=== PATIENT | male | born 1980 | race Caucasian/White ===

== ENCOUNTER 2022-03-10 14:07 | Outpatient (CLI) | payer OTHER ==
--- NOTE | 2022-03-10 16:19 | MRI Report ---
PROCEDURE: Lumbar Spine W/O INDICATIONS: POLYNEUROPATHY TECHNIQUE: Noncontrast sagittal T1 spin echo and T2 fast echo, sagittal STIR, axial T1 and T2 fast spin echo thr ough the lumbar spine. In cases with scoliosis, additional coronal T2 fast spin echo may be performe d. COMPARISON: None. FINDINGS: Image quality: Excellent. Alignment and Curvature: There is normal bony alignment. Bone Marrow: Marrow is of normal overall signal. No acute vertebral body compression fractures. Spinal Cord: Conus medullaris terminates at the normal level. Visualized cord demonstrates normal s ignal and size. Paraspinous Soft Tissues: No paravertebral masses. At both L4-L5 and L5-S1, disc desiccation and disc height loss with diffuse disc bulges which flatten the ventral thecal sac and mildly displaces the descending and S1 nerve roots at these levels, respe ctively. Foraminal components of the disc bulges at these levels contribute to mild bilateral neural foraminal narrowing without mass effect upon the exiting nerve roots. From T12-L1 through L3-L4 there is no significant degenerative change or evidence of focal nerve root impingement. IMPRESSION: Mild degenerative changes at L4-L5 and L5-S1, with disc desiccation and disc bulges at both levels pr oducing mild displacement of the descending subarticular zone nerve roots at these levels. Correlate for any corresponding L5 or S1 radicular symptoms. Reviewed by: Ramon Camacho MD on 03/10/2022 4:18 PM PDT Approved by: Ramon Camacho MD on 03/10/2022 4:18 PM PDT Station ID: [id number]
== END 2022-03-10 14:08 | disposition home or self-care (01) ==
LOC: DI 14:07
PROVIDERS: ATTEND Student in an Organized Health Care Education/Training Program
DX: G62.9 Polyneuropathy, unspecified (principal); M51.36 Other intervertebral disc degeneration, lumbar region; M48.061 Spinal stenosis, lumbar region without neurogenic claudication; M51.37 Other intervertebral disc degeneration, lumbosacral region; M48.07 Spinal stenosis, lumbosacral region

== ENCOUNTER 2023-08-01 08:45 | Outpatient (CLI) | payer OTHER ==
--- NOTE | 2023-08-01 09:46 | Sleep Patient Instructions ---
Sleep Center Visit Summary - Patient Visit Information Reason for Visit: Initial consult for evaluation of sleep disordered breathing and other sleep issues. - Patient Instructions Instructions Attached: Sleep Study, Sleep Study Home Monitor Additional Instructions: You will be completing a sleep study, either an in-lab polysomnography (PSG) or home sleep study (HST). You will follow-up in the sleep care office after the sleep study is completed to hear the results and talk about therapy, if needed. You will be called by our office staff to schedule this appointment, but you may contact us with any questions. - Clinic Information Contact: [facility] [address] [place] [id number] [email or web address] T: [phone]
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
[2023-08-01 09:52] VITALS: BP 128/80; O2SAT 97
== END 2023-08-01 08:46 | disposition home or self-care (01) ==
LOC: SC 08:45
PROVIDERS: ATTEND Nurse Practitioner Family
DX: R06.83 Snoring (principal); G47.8 Other sleep disorders; R06.81 Apnea, not elsewhere classified; G47.10 Hypersomnia, unspecified; F32.A Depression, unspecified; E66.9 Obesity, unspecified; Z68.31 Body mass index [BMI] 31.0-31.9, adult; F17.210 Nicotine dependence, cigarettes, uncomplicated
CPT/HCPCS: 99203; 99212

== ENCOUNTER 2023-08-27 20:32 | Outpatient (CLI) | payer OTHER | END 2023-08-27 20:33 | disposition home or self-care (01) | LOC: SC 20:32 | PROVIDERS: ATTEND Nurse Practitioner Family | DX: G47.8 Other sleep disorders (principal) | CPT/HCPCS: 95810 ==

== ENCOUNTER 2023-09-06 10:55 | Outpatient (CLI) | payer OTHER ==
--- NOTE | 2023-09-06 12:01 | Sleep Patient Instructions ---
Sleep Center Visit Summary - Patient Visit Information Reason for Visit: Sleep study follow-up - Patient Instructions Instructions Attached: CPAP Additional Instructions: You are being started on CPAP therapy with pressure setting at 4-15 cmH2O. You will need to call the sleep care office to set up your follow up once you have your APAP machine and we will schedule a visit to check compliance and response to therapy at that time. You may call the office with any concerns about pressure feeling too low or too much for adjustment, if needed. You should contact DME supplier for any questions or concerns about mask or equipment. Please call office to schedule a follow up appointment in the sleep care office one month after obtaining new device. - Clinic Information Contact: [facility] [address] [place] [address] [email or web address] T: [phone]
--- NOTE | 2023-09-06 12:04 | SLEEP CARE CONSULTATION ---
Information from patient questionnaire entered by Thea White. I have reviewed and concur with the information entered by Thea White. This document represents the service I personally performed and the decisions made by , Love Hyde ARNP. History of Present Illness Service Date and Time: 09/06/2023 1055 Initial [place] Sleepiness Scale score: 20 (in 2022) Current [place] Sleepiness Scale score: 15 (09/06/23) Additional HPI information: ALETHA MARROQUIN returns for follow up and results of the recently performed polysomnography. The sleep study showed mild upper airway resistance syndrome with an average AHI of 4.5 with RDI 9.6 and bentley oxygen saturation of 87%. I explained the pathophysiology behind upper airway resistance syndrome. We then spent quite a bit of time discussing different treatment options. I reviewed the impact of weight changes and strongly recommended losing weight. After some discussion, the patient opted to go with the nasal CPAP therapy. Nasal autoCPAP set at 4-15 cmH20 will be ordered with rationale explained. A manual titration study will be ordered if unable to find optimal pressure with office adjustments. I explained how CPAP machine works and what to expect when using the machine. Using CPAP every night in order to get used to it was emphasized. Patient advised to put CPAP mask on before getting into bed so as not to fall asleep without CPAP. To assist acclimation to CPAP use, it could also be used for a short time during day while reading or watching TV. The patient was instructed to call the CPAP supplier to discuss any mechanical problem that may occur. If the mask given is uncomfortable or is difficult to keep on through the night even with adjustment, contact the CPAP supplier as many will replace with another mask style if notified before 30 days. If sno ring or perceives is not getting enough air or too much air from the machine, notify this office. Patient counseled not drink alcohol less than 4 hours before bedtime as it can increase snoring and apnea. Patient was cautioned about risks of drowsy driving until sleepiness symptoms resolve. Sleep Study - Results Type of Sleep Study: Polysomnography (COMPLETED 08/27/23) Prior sleep studies: No Polysomnography/Home Sleep Study results: IMPRESSION: The quality of the study is good. The patient had normal sleep efficiency. The sleep architecture was abnormal for sleep fragmentation and reduced amount of time spent in REM and slow wave sleep (N3). Respiratory monitoring showed evidence of upper airway resistance syndrome (AHI = 4.5; RDI = 9.6) associated with frequent arousals, oxyhemoglobin desaturation and mild hypoxia (bentley oxygen saturation of 87%). The patient only slept supine during this study (supine AHI = 4.5; non-supine = 0.00). Snore was intermittent and moderate in intensity. There was no significant periodic leg movement of sleep. Cardiac rhythm was normal sinus rhythm without significant arrhythmia. No abnormal behavior (parasomnia) observed during the night. Allergies and Home Medications Known drug allergies: No Drug allergies reviewed: Yes Home medication list reviewed: Yes (no changes) Allergy and home medication list: Allergies No Known Drug Allergies Allergy (Verified 09/05/23 15:29) Home Medications No Known Home Medications 09/05/23 [History Confirmed 09/05/23] Review of Systems Review of systems same as previous: Yes (NO CHANGE) Physical Exam Vital signs obtained and entered by: THEA Nieto MA Blood Pressure: 131/78 (RIGHT ARM) Cuff size: regular Heart Rate: 76 O2 Saturation: 98 Height: 6 ft Weight: 225 lb 9.6 oz Body Mass Index: 30.6 BMI Classification: Obese Impression and Plan 1. Upper Airway Resistance Syndrome, mild, with lowest oxygen saturation of 87%. Obviously this is the cause of the patients symptoms of unrefreshed sleep, and excessive daytime sleepiness. Positive pressure therapy could benefit anxiety and depression. As mentioned above, the patient will be started on nasal autoCPAP therapy with pressure set at 4-15 cmH2O. A manual titration study will be completed if unable to find optimal treatment pressure with office adjustments. Compliance guidelines also reviewed. A copy of compliance guidelines will be given for reference at check out. 2. Obesity, unspecified. Currently patients BMI is 30.6. Obesity increases the risk of apnea, CPAP pressure requirements and overall health risks especially cardiovascular and diabetes. Thus patient is advised to lose weight. * Nasal auto CPAP therapy, pressure at 4-15 cmH2O. * Attempt to lose weight. * Avoid alcohol consumption near bedtime. * Avoid supine sleep until using CPAP. * The patient is again cautioned about driving until sleepiness completely resolves. * Return one month after CPAP obtained. I will assess response to therapy and compliance at that time. Counseling Topics: Weight loss health impact Prescriptions: Auto CPAP Follow up with Sleep Care in: other (1 month after obtaining new CPAP) Visit Type: In Office Time Spent with Patient (minutes): 20 Provider Statement: I spent 100% of the Face to Face Visit with the patient with greater than 50% spent counseling the patient and coordination of care.
[2023-09-06 12:09] VITALS: BP 131/78; O2SAT 98
== END 2023-09-06 10:56 | disposition home or self-care (01) ==
LOC: SC 10:55
PROVIDERS: ATTEND Nurse Practitioner Family
DX: G47.8 Other sleep disorders (principal); E66.9 Obesity, unspecified; Z68.30 Body mass index [BMI] 30.0-30.9, adult
CPT/HCPCS: 99212; 99213